=== PATIENT | male | born 1940 | race Caucasian/White ===

== ENCOUNTER → 2016-09-14 | Outpatient (CLI) | payer MEDICARE ==
[~2016-09-14] MED LIST: BACTRIM DS TAB1 EACH PO; DILTIAZEM 24HR300 M1 PO; FENOFIBRATE160 MG PO; GLUCOPHAGE 500500 MG PO; GLUCOTROL5 MG PO; HYDROCHLOROTHIA25 MG PO; LIPITOR TAB 1010 MG PO; OMEGA 3 1,0001 EACH PO; REQUIP4 MG PO; TOPROL XL100 MG PO
== END ==
LOC: RAD 14:42
DX: K52.89 Other specified noninfective gastroenteritis and colitis (principal); R53.1 Weakness
CPT/HCPCS: 74022